=== PATIENT | male | born 1985 | race Caucasian/White ===

== ENCOUNTER 2018-04-24 10:14 | Emergency (ER) | payer OTHER ==
[2018-04-24 10:48] LABS: ACETAMINOPHEN < 2 ug/mL (10-30)
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
[2018-04-24] MEDS ORDERED: Sodium Chloride 0.9% 1,000 ML IV SCH (11:00)
[2018-04-24] MEDS ORDERED: Ondansetron 4 MG Tab.DIS PO ONE (11:09)
[2018-04-24] MEDS ORDERED: Ondansetron 4 MG/2 ML SDV ONE (11:10)
[2018-04-24] MEDS ORDERED: Ondansetron 4 MG/2 ML SDV IVPUSH ONE (11:10)
== END 2018-04-24 14:56 | disposition left against medical advice (07) ==
LOC: FB.ED 10:14 → EDBD 10:14 → FB.ED 14:56
DX: S06.0X0A Concussion without loss of consciousness, initial encounter (principal); S01.81XA Laceration without foreign body of other part of head, initial encounter; S80.02XA Contusion of left knee, initial encounter; S80.211A Abrasion, right knee, initial encounter; Y90.7 Blood alcohol level of 200-239 mg/100 ml; Z53.21 Procedure and treatment not carried out due to patient leaving prior to being seen by health care provider; F10.129 Alcohol abuse with intoxication, unspecified; W22.8XXA Striking against or struck by other objects, initial encounter
CPT/HCPCS: 70450; 72125; 80053; 80305; 85025; 93005; 96361; 96374; 99284; G0480; J2405; J7030